=== PATIENT | female | born 1990 | race Caucasian/White ===

== ENCOUNTER 2022-11-20 19:11 | Observation (INO) | payer BC ==
[~2022-11-20] VITALS: Ht 167.6 cm; Wt 113.4 kg
--- NOTE | 2022-11-20 19:38 | ER.PDOC ---
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 Not heterosexually active, history of prior R nephrectomy because of ?cysts? or something similar from recurrent pyelonephritis. Timing/Duration: yesterday Severity/Quality: moderate, severe Location of Pain: flank pain Sexual [place] History: not active Contraceptive: none Associated Symptoms: dysuria Prior symptoms/Treatment: Similar symptoms previous Allergies: Coded Allergies: No Known Drug Allergies (Verified Allergy, Unknown, 11/20/22) Past Medical History Medical History: other (frequent UTIs. 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 Noted, Nursing Assessment Review of Systems Constitutional: malaise EENTM: no symptoms reported Respiratory: denies shortness of breath Cardiovascular: no symptoms reported Gastrointestinal: no symptoms reported Genitourinary: dysuria, flank pain Musculoskeletal: no symptoms reported Skin: no symptoms reported Psychiatric/Neurological: no symptoms reported All Other Systems: Reviewed and Negative Physical Exam General Appearance: Moderate Distress EENT: nml ENT inspection Neck: non-tender Cardiovascular/Respiratory: Regular Rate, Rhythm (initially rather tachy to 1- teens/120.) Abdomen: Normal Bowel Sounds, Soft Back: CVA tenderness (somewhat, perhaps more flank pain than CVA) Extremities: Non-Tender Neurologic/Psychiatric: No Motor/Sensory Deficits, Alert, Normal Mood/Affect Skin: Normal Color Results/Orders Results/Orders Orders - DAVID WELCH MD Urinalysis (11/20/22 19:37) Cbc With Auto Diff (11/20/22 19:46) Basic Metabolic Panel (11/20/22 19:46) Blood Culture (11/20/22 19:46) Ketorolac Tromethamine (Toradol) (11/20/22 19:48) 0.9 % Sodium Chloride (Ns 1000ml) (11/20/22 19:48) 0.9 % Sodium Chloride (Ns 1000ml) (11/20/22 19:48) Ceftriaxone Sodium (Rocephin) (11/20/22 19:48) 0.9 % Sodium Chloride (Ns 100ml) (11/20/22 20:23) Lactic Acid(Ml) (11/20/22 20:30) Urine Culture (11/20/22 19:43) Creatine Kinase (11/20/22 20:53) Ct Abd/Pelvis Wo Iv Contrast (11/20/22 20:53) Admit Orders (11/20/22 22:20) Vital Signs Date Time Temp Pulse Resp B/P (MAP) Pulse Ox O2 Delivery O2 Flow Rate FiO2 11/20/22 21:05 102 18 124/60 (81) 100 Room Air* 0 21 11/20/22 20:16 99.2 113 20 140/70 (93) 100 Room Air* 0 21 11/20/22 20:16 99.2 113 20 100 Administered Medications Medications (Trade) Dose Ordered Sig/[place] Route PRN Reason Start Time Stop Time Status Last Admin Dose Admin Ceftriaxone Sodium (Rocephin) 2,000 mg STAT STAT IV 11/20/22 19:48 11/20/22 19:49 UNV 11/20/22 20:24 2,000 MG Ketorolac Tromethamine (Toradol) 30 mg STAT STAT IV 11/20/22 19:48 11/20/22 19:49 UNV 11/20/22 20:04 30 MG Sodium Chloride 1,000 ml @ 0 mls/hr STAT STAT IV 11/20/22 19:48 11/20/22 19:49 UNV 11/20/22 20:04 1,200 MLS/HR Sodium Chloride 1,000 ml @ 0 mls/hr STAT STAT IV 11/20/22 19:48 11/20/22 19:49 UNV 11/20/22 20:04 1,200 MLS/HR Laboratory Tests Test 11/20/22 19:43 11/20/22 19:44 11/20/22 19:56 White Blood Count 12.3 10^3/uL (4.5-11.0) H Red Blood Count 4.47 10^6/uL (4.00-5.20) Hemoglobin 13.1 g/dL (12.0-15.0) Hematocrit 39.4 % (36.0-46.0) Mean Corpuscular Volume 88.1 fL (78-100) Mean Corpuscular Hemoglobin 29.3 pg (26-34) Mean Corpuscular Hemoglobin Concent 33.2 g/dL (33-36.5) Red Cell Distribution Width 16.5 % (11.5-14.5) H Platelet Count 408 10^3/uL (150-400) H Mean Platelet Volume 10.0 fL (7.8-11.0) Neutrophils (%) (Auto) 64.5 % (41.0-85.0) Lymphocytes (%) (Auto) 26.8 % (24.0-44.0) Monocytes (%) (Auto) 7.5 % (5.0-12.0) Neutrophils # (Auto) 8.0 10^3/uL (1.8-7.7) H Lymphocytes # (Auto) 3.31 10^3/uL1 (1.0-4.8) Monocytes # (Auto) 0.9 10^3/uL (0.3-0.8) H Absolute Immature Granulocyte (auto 0.02 10^3 u/L (0-2) Absolute Eosinophils (auto) 0.1 10^3/uL (0.0-0.2) Immature Granulocytes % 0.20 % (0.00-0.50) Eosinophils % 0.6 % (0.0-5.0) Basophils % 0.4 % (0.0-0.2) H Basophils # 0.1 10^3/uL (0.0-0.1) Urine Collection Type RANDOM Urine Color YELLOW Urine Appearance TURBID Urine Bilirubin NEGATIVE (NEGATIVE) Urine Ketones NEGATIVE (NEGATIVE) Urine Specific [place] >=1.030 (1.005-1.030) Urine pH 6.0 (4.5-8.0) Urine Protein 3+ (NEGATIVE) H Urine Urobilinogen 0.2 E.U./dL (0.2) Urine Nitrate POSITIVE (NEGATIVE) H Urine Leukocyte Esterase 1+ (NEGATIVE) H Urine Glucose (Auto)(UA) NEGATIVE (NEGATIVE) Urine Blood 3+ (NEGATIVE) H Urine RBC 0-2 RBC/HPF (NONE SEEN) Urine WBC TooNumerousToCount WBC/HPF (0-2) Urine Squamous Epithelial Cells FEW (<=FEW) Urine Bacteria FEW (NONE SEEN) H Urine Yeast RARE (NONE SEEN) Sodium Level 141 mmol/L (132-145) Potassium Level 3.6 mmol/L (3.6-5.2) Chloride Level 104.0 mmol/L (96-109) Carbon Dioxide Level 25.9 mmol/L (20.0-32) Glucose Level 82 mg/dL (70-110) Blood Urea Nitrogen 9 mg/dL (7-18) Creatinine 1.18 mg/dL (0.59-1.40) Calcium Level 8.3 mg/dL (8.4-10.5) L Anion Gap 14.7 Estimated GFR () 64.2 (>/=60) Est GFR (CKD-EPI)(Non-Afr Danish) 53.1 (>/=60) BUN/Creatinine Ratio 7.0 (10.0-20.0) L Total Creatine Kinase 132 U/L (26-192) Lactic Acid Level 1.4 mmol/L (0.5-1.9) Progress Progress MDM: Florid UTI, possibly pyelo. CBC shows WBC 12.4. CMP unremarkable. UA florid UTI. CPK: wnl CT abd/pelvis: no major pyelonephritic changes. Given pt's immunosuppressed status, I will recommend for admission. I have conferred with Dr. Arriaga. We will place pt in observation and continue fluids and abx. ER DEPART Departure Time of Disposition: 22:27 Disposition: 09 ADMITTED INPATIENT Impression: Primary Impression: Urinary tract infection Condition: Improved Referrals: BENJI PARSON (PCP) PRIMARY CARE PROVIDER Duration or Time Spent with Pa: 15 min DAVID WELCH MD Nov 20, 2022 19:38
[2022-11-20] MEDS ORDERED: TORADOL IV STA (19:48)
[2022-11-20] MEDS ORDERED: NS 1000ML 1,000 ML STA ×2 (19:48)
[2022-11-20] MEDS ORDERED: ROCEPHIN IV STA (19:48)
[2022-11-20] MEDS ORDERED: NS 1000ML 1,000 ML IV STA ×2 (19:48)
[2022-11-20 20:02] LABS: BASOPHIL # 0.1 10^3/uL (0.0-0.1); BASOPHIL % 0.4 % (0.0-0.2); EOSINOPHIL # 0.1 10^3/uL (0.0-0.2); EOSINOPHIL % 0.6 % (0.0-5.0); LYMPHOCYTES # 3.31 10^3/uL1 (1.0-4.8); LYMPHOCYTES % 26.8 % (24.0-44.0); MEAN CORP HGB 29.3 pg (26-34); MONOCYTES # 0.9 10^3/uL (0.3-0.8); MONOCYTES % 7.5 % (5.0-12.0); NEUTROPHILS % 64.5 % (41.0-85.0); PLATELET COUNT 408 10^3/uL (150-400); RED CELL DISTRIBUTION WIDTH 16.5 % (11.5-14.5)
[2022-11-20 20:15] LABS: CARBON DIOXIDE 25.9 mmol/L (20.0-32)
[2022-11-20 20:16] VITALS: BP 140/70
[2022-11-20 20:16] LABS: BILIRUBIN,URINE NEGATIVE (NEGATIVE); UROBILINOGEN,URINE 0.2 E.U./dL (0.2)
[2022-11-20] MEDS ORDERED: NS 100ML 100 ML IV ONE (20:23)
[2022-11-20 20:38] LABS: YEAST,URINE RARE (NONE SEEN)
[2022-11-20 21:05] VITALS: BP 124/60
[2022-11-20 22:10] VITALS: BP 115/72
--- NOTE | 2022-11-20 22:10 | DIREP ---
PROCEDURE:CT ABDOMEN/PELVIS W/O CONTRAST COMPARISON:[facility] [place] [facility], CT, CT RENAL STONE PROTOCOL, 07/06/2018, 07:31 PM. [facility] [place] [facility], CT, CT ABD/PELVIS W/ CONTRAST, 04/18/2019, 02:45 PM. INDICATIONS:characterize pyelonephritis TECHNIQUE:Axial images were created through the abdomen and pelvis without intravenous contrast material. No oral contrast was administered. Sagittal and coronal reconstructions were performed from source images. FINDINGS: LUNG BASES:Normal. No visible pulmonary or pleural disease. LIVER:Normal. No significant liver lesions are identified. BILIARY:Cholecystectomy PANCREAS:Normal. No lesion, fluid collection, ductal dilatation, or atrophy. SPLEEN:Normal. No enlargement or focal lesion. ADRENALS:Normal. No mass or enlargement. URINARY TRACT:Absent right kidney with several small surgical clips, presumably from nephrectomy. No nephrolithiasis or hydronephrosis left kidney. Ureter normal on the left. No perinephric inflammation. AORTA/VASCULAR:Normal. No aneurysm. RETROPERITONEUM:Normal. No mass or adenopathy. BOWEL/MESENTERY: Unable to identify the appendix, normal or abnormal. No oral contrast. No dilated loops. Small amount of diverticulosis of the sigmoid colon, no focal signs of diverticulitis ABDOMINAL WALL:Normal. No mass or hernia. PELVIC ORGANS:Normal. No visible mass. Pelvic organs appropriate for patient age. BONES:Normal for age. No bony lesion or acute fracture. OTHER:Negative. CONCLUSION:Absent right kidney. Cholecystectomy. Normal left kidney. No IV contrast. Dictated by: Carla Rodriguez MD on 11/20/2022 at 10:02 PM
--- NOTE | 2022-11-20 22:28 | PRM.CONS ---
Consultation Reason for Consult: Reason for Consultation: Admission for UTI and dehydration History of Present Illness Current and Past HX: (1) History of nephrectomy Status: Chronic ICD Code: Z90.5 - Acquired absence of kidney SNOMED: 48066366875684 (2) History of cholecystectomy Status: Chronic ICD Code: Z90.49 - Acquired absence of other specified parts of digestive tract SNOMED: 60139673, 806132865 History of Patient Comments This is a telemedicine visit Patient's current location: [place], [place] My current location: [place], [place] Total time spent on day of admission: 22 minutes including review of the chart, discussion with emergency room provider, placement of orders Per emergency room staffing, patient declined full telemedicine evaluation but was okay with cross covering as well as placement of admission orders and initial treatment for her urinary tract infection. Vitals & Lab Laboratory Tests Test 11/20/22 19:43 11/20/22 19:44 11/20/22 19:56 White Blood Count 12.3 10^3/uL Red Blood Count 4.47 10^6/uL Hemoglobin 13.1 g/dL Hematocrit 39.4 % Mean Corpuscular Volume 88.1 fL Mean Corpuscular Hemoglobin 29.3 pg Mean Corpuscular Hemoglobin Concent 33.2 g/dL Red Cell Distribution Width 16.5 % Platelet Count 408 10^3/uL Mean Platelet Volume 10.0 fL Neutrophils (%) (Auto) 64.5 % Lymphocytes (%) (Auto) 26.8 % Monocytes (%) (Auto) 7.5 % Neutrophils # (Auto) 8.0 10^3/uL Lymphocytes # (Auto) 3.31 10^3/uL1 Monocytes # (Auto) 0.9 10^3/uL Absolute Immature Granulocyte (auto 0.02 10^3 u/L Absolute Eosinophils (auto) 0.1 10^3/uL Immature Granulocytes % 0.20 % Eosinophils % 0.6 % Basophils % 0.4 % Basophils # 0.1 10^3/uL Urine Collection Type RANDOM Urine Color YELLOW Urine Appearance TURBID Urine Bilirubin NEGATIVE Urine Ketones NEGATIVE Urine Specific [place] >=1.030 Urine pH 6.0 Urine Protein 3+ Urine Urobilinogen 0.2 E.U./dL Urine Nitrate POSITIVE Urine Leukocyte Esterase 1+ Urine Glucose (Auto)(UA) NEGATIVE Urine Blood 3+ Urine RBC 0-2 RBC/HPF Urine WBC TooNumerousToCount WBC/HPF Urine Squamous Epithelial Cells FEW Urine Bacteria FEW Urine Yeast RARE Sodium Level 141 mmol/L Potassium Level 3.6 mmol/L Chloride Level 104.0 mmol/L Carbon Dioxide Level 25.9 mmol/L Glucose Level 82 mg/dL Blood Urea Nitrogen 9 mg/dL Creatinine 1.18 mg/dL Calcium Level 8.3 mg/dL Anion Gap 14.7 Estimated GFR () 64.2 Est GFR (CKD-EPI)(Non-Afr Guamanian) 53.1 BUN/Creatinine Ratio 7.0 Total Creatine Kinase 132 U/L Lactic Acid Level 1.4 mmol/L Current Medications Medications (Trade) Dose Ordered Sig/[place] Route PRN Reason Start Time Stop Time Status Last Admin Dose Admin Ketorolac Tromethamine (Toradol) 30 mg STAT STAT IV 11/20/22 19:48 11/20/22 19:49 UNV 11/20/22 20:04 Sodium Chloride 1,000 ml @ 0 mls/hr STAT STAT IV 11/20/22 19:48 11/20/22 19:49 UNV 11/20/22 20:04 Sodium Chloride 1,000 ml @ 0 mls/hr STAT STAT IV 11/20/22 19:48 11/20/22 19:49 UNV 11/20/22 20:04 Ceftriaxone Sodium (Rocephin) 2,000 mg STAT STAT IV 11/20/22 19:48 11/20/22 19:49 UNV 11/20/22 20:24 Sodium Chloride 100 ml @ ud STK-MED ONCE IV 11/20/22 20:23 11/20/22 20:24 DC Vital Sign - Last 24 Hours 11/20/22 11/20/22 11/20/22 20:16 20:16 21:05 Temp 99.2 99.2 Pulse 113 113 102 Resp 20 20 18 B/P (MAP) 140/70 (93) 124/60 (81) Pulse Ox 100 100 100 O2 Delivery Room Air* Room Air* O2 Flow Rate 0 0 FiO2 21 21 VTE VTE Risk Score VTE Risk: Score 0-1 = Low Risk (Aggressive mobilization; early ambulation; no VTE prophylaxis required) Score 2: Moderate Risk (Intermittent/Pneumatic Compression Device OR Lovenox/Heparin/Coumadin) Score 3-4: High Risk (Intermittent/Pneumatic Compression Device AND Lovenox/Heparin/Coumadin) Score > or =5: Highest Risk (Intermittent/Pneumatic Compression Device AND Lovenox/Heparin/Coumadin) Reasons not ordering prophylax: Bleeding VTE Mechanical device ordered: Yes History of Present Illness History of Present Illness This is a 32-year-old female with a known history of ocular autoimmune disorder undergoing IVIG and CellCept who presented to the emergency room with complaints of dysuria and left-sided flank pain. In the emergency room she underwent full evaluation including CT abdomen pelvis which showed no nephrolithiasis. She did have evidence of urinary tract infection and was subsequently being admitted to the hospital. Past Surgical History: Cholecystectomy, Other (nephrectomy) Past Social History Smoke: No Alcohol: none Travel Hx EBOLA RISK:Travel to/contact w: No Physical Exam General Appearance: Other Comments Declined by patient Assessment/Plan Assessment/Plan Problems: (1) Urinary tract infection Status: Acute Assessment & Plan: Starting the patient on IV Rocephin Follow-up on urine and blood cultures No evidence of severe sepsis, severe organ damage ICD Code: N39.0 - Urinary tract infection, site not specified SNOMED: 03455353 (2) SIRS (systemic inflammatory response syndrome) Status: Acute Assessment & Plan: Patient does have evidence of SIRS without severe sepsis or a significantly elevated sofa score. Possible cause of the abnormal vitals are related to her underlying acute infection. Monitor vital signs very closely ICD Code: R65.10 - Systemic inflammatory response syndrome (SIRS) of non- infectious origin without acute organ dysfunction SNOMED: 155757532 (3) Thrombocytosis Status: Acute Assessment & Plan: Trend for now ICD Code: D75.839 - Thrombocytosis, unspecified SNOMED: 2000786 (4) Dehydration Status: Acute Assessment & Plan: Aggressive IV fluid hydration ICD Code: E86.0 - Dehydration SNOMED: 46109535 (5) Proteinuria Status: Chronic Assessment & Plan: Outpatient follow-up ICD Code: R80.9 - Proteinuria, unspecified SNOMED: 04319444 (6) History of nephrectomy Status: Chronic Assessment & Plan: Stable ICD Code: Z90.5 - Acquired absence of kidney SNOMED: 20799326796865 (7) History of cholecystectomy Status: Chronic Assessment & Plan: Stable ICD Code: Z90.49 - Acquired absence of other specified parts of digestive tract SNOMED: 95448207, 866499799 Problem Qualifiers (1) Urinary tract infection: Urinary tract infection type: acute cystitis Hematuria presence: with hematuria Qualified Codes: N30.01 - Acute cystitis with hematuria (2) Proteinuria: Proteinuria type: persistent Qualified Codes: R80.1 - Persistent proteinuria, unspecified JOSSE MORALES MD Nov 20, 2022 22:28
[2022-11-20] MEDS ORDERED: TYLENOL PO PRN (22:30)
[2022-11-20] MEDS ORDERED: ZOFRAN IV PRN (22:30)
[2022-11-20] MEDS ORDERED: NORCO 5MG PO PRN (22:30)
[2022-11-20] MEDS ORDERED: MORPHINE SULFATE IV PRN (22:30)
[2022-11-20 22:50] VITALS: BP 122/68
[2022-11-20] MEDS: NS 1000ML 1,000 ML IV SCH (23:31)
[2022-11-21] VITALS: BP_SYST 125; BP_SYST 126; BP_DIAS 100; BP_DIAS 82
[2022-11-21] MEDS: NS 1000ML 1,000 ML IV SCH ×4 (03:30→18:19)
[2022-11-21 04:21] VITALS: BP 133/70
[2022-11-21 05:27] LABS: BASOPHIL % 0.4 % (0.0-0.2); EOSINOPHIL # 0.1 10^3/uL (0.0-0.2); EOSINOPHIL % 0.9 % (0.0-5.0); LYMPHOCYTES # 3.06 10^3/uL1 (1.0-4.8); LYMPHOCYTES % 32.9 % (24.0-44.0); MEAN CORP HGB 29.8 pg (26-34); MONOCYTES # 0.7 10^3/uL (0.3-0.8); NEUTROPHIL # 5.5 10^3/uL (1.8-7.7); NEUTROPHILS % 58.8 % (41.0-85.0); PLATELET COUNT 333 10^3/uL (150-400); RED CELL DISTRIBUTION WIDTH 16.3 % (11.5-14.5)
[2022-11-21 05:46] LABS: CARBON DIOXIDE 22.7 mmol/L (20.0-32)
[2022-11-21 07:00] VITALS: BP 139/109
[2022-11-21] MEDS: ROCEPHIN 1,000 MG in NS 100ML 100 ML IV SCH (08:36)
[2022-11-21 11:00] VITALS: BP 110/70
--- NOTE | 2022-11-21 11:35 | NUR ---
CM, DISCHARGE PLANNING CM VISITED WITH PATIENT REGARDING DISCHARGE PLAN AND NEED. PATIENT LIVES AT HOME WITH SIGNIFICANT OTHER. PATIENT INDEPENDENT WITH ADLS WITH CANE,WALKER AND WHEELCHAIR AT HOME, PCP DR Prince PARSON, HAS GOOD SUPPORT SYSTEM. DENIES ANY DISCHARGE NEED, NO FURTHER CASE MANAGEMENT NEED AT THIS TIME. GOAL AT THIS TIME TO RETURN HOME WITH SIGNIFICANT OTHER FOR ROUTINE SELF CARE. CM TO CONTINUE TO FOLLOW/MONITOR FOR DISCHARGE NEED.
[2022-11-21 16:00] VITALS: BP 118/82
--- NOTE | 2022-11-21 16:00 | PCM.HP ---
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 In the emergency room she underwent full evaluation including CT abdomen pelvis which showed no nephrolithiasis. She did have evidence of urinary tract infection and was subsequently being admitted to the hospital by tele housing installer. Patient received IV fluids and started on IV antibiotics, Per chart review patient initially met SIRS criteria but not sepsis or shock, She reported feeling better the next morning. Patient reported pain had improved and prior to presenting had decreased urination and dysuria with some purulent discharge. Patient post Right nephrectomy for masses that were benign, She reports getting diagnosed with autoimmune disorder 7 months ago in May. Reported associated fevers and chills. Patient reports similar episode about 1 year prior.. ALLERGIES: Denies any known food or drug PCP: Dr. 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 Patient is single, lives with her boyfriend, does not use walker or cane FAMILY HISTORY: Denies any autoimmune disorder, non contributory REVIEW OF SYSTEMS: 10 Point review of systems negative per HPI VITAL SIGNS: Vital Signs Date Time Temp Pulse Resp B/P (MAP) Pulse Ox O2 Delivery O2 Flow Rate FiO2 11/21/22 11:00 98.1 87 18 110/70 (83) 99 Room Air* 0 11/21/22 08:36 Room Air 0.00 11/21/22 07:00 97.5 100 18 139/109 (119) 98 Room Air* 0 11/21/22 04:21 97.9 85 19 133/70 (91) 92 Room Air* 0 11/21/22 00:00 125/100 (108) Room Air* 0 11/21/22 00:00 97.7 118 20 126/82 (97) 98 Room Air* 0 21 11/20/22 23:48 Room Air 0.00 11/20/22 22:50 98.9 95 18 122/68 (86) 100 Room Air* 0 21 11/20/22 22:10 97 18 115/72 (86) 100 Room Air* 0 21 11/20/22 21:05 102 18 124/60 (81) 100 Room Air* 0 21 11/20/22 20:16 99.2 113 20 140/70 (93) 100 Room Air* 0 21 11/20/22 20:16 99.2 113 20 100 PHYSICAL EXAMINATION: General: Patient resting but easily arousable, no acute distress HEENT: Head atraumatic, PERRL, EOMI, oropharynx clear, neck supple Heart: Normal S1 and S2 Lungs: Good air entry bilaterally, no rhonchi wheeze Abdomen is obese, positive bowel sounds, soft, nontender Extremities: Moves all well, no gross deformity, no edema Neuro: Grossly intact, mild decreased strength right side upper and lower extremities. Skin: Intact, no rashes or breakdown Psych: Mood appropriate, patient cooperative with exam LABORATORY DATA: Laboratory Tests 11/20/22 19:43: White Blood Count 12.3H, Red Blood Count 4.47, Hemoglobin 13.1, Hematocrit 39.4, Mean Corpuscular Volume 88.1, Mean Corpuscular Hemoglobin 29.3, Mean Corpuscular Hemoglobin Concent 33.2, Red Cell Distribution Width 16.5H, Platelet Count 408H, Mean Platelet Volume 10.0, Neutrophils (%) (Auto) 64.5, Lymphocytes (%) (Auto) 26.8, Monocytes (%) (Auto) 7.5, Neutrophils # (Auto) 8.0H, Lymphocytes # (Auto) 3.31, Monocytes # (Auto) 0.9H, Absolute Immature Granulocyte (auto 0.02, Absolute Eosinophils (auto) 0.1, Immature Granulocytes % 0.20, Eosinophils % 0.6, Basophils % 0.4H, Basophils # 0.1, Urine Collection Type RANDOM, Urine Color YELLOW, Urine Appearance TURBID, Urine Bilirubin NEGATIVE, Urine Ketones NEGATIVE, Urine Specific [place] >=1.030, Urine pH 6.0, Urine Protein 3+H, Urine Urobilinogen 0.2, Urine Nitrate POSITIVEH, Urine Leukocyte Esterase 1+H, Urine Glucose (Auto)(UA) NEGATIVE, Urine Blood 3+H, Urine RBC 0-2, Urine WBC TooNumerousToCountH, Urine Squamous Epithelial Cells FEW, Urine Bacteria FEWH, Urine Yeast RARE, Sodium Level 141, Potassium Level 3.6, Chloride Level 104.0, Carbon Dioxide Level 25.9, Glucose Level 82, Blood Urea Nitrogen 9, Creatinine 1.18, Calcium Level 8.3L, Anion Gap 14.7, Estimated GFR () 64.2, Est GFR (CKD-EPI)(Non-Afr Spanish) 53.1, BUN/Creatinine Ratio 7.0L 11/20/22 19:44: Total Creatine Kinase 132 11/20/22 19:56: Lactic Acid Level 1.4 11/21/22 05:12: White Blood Count 9.3, Red Blood Count 3.73L, Hemoglobin 11.1L, Hematocrit 33.4L , Mean Corpuscular Volume 89.5, Mean Corpuscular Hemoglobin 29.8, Mean Corpuscular Hemoglobin Concent 33.2, Red Cell Distribution Width 16.3H, Platelet Count 333, Mean Platelet Volume 10.1, Neutrophils (%) (Auto) 58.8, Lymphocytes (%) (Auto) 32.9, Monocytes (%) (Auto) 7.0, Neutrophils # (Auto) 5.5, Lymphocytes # (Auto) 3.06, Monocytes # (Auto) 0.7, Absolute Immature Granulocyte (auto 0, Absolute Eosinophils (auto) 0.1, Immature Granulocytes % 0.00, Eosinophils % 0.9, Basophils % 0.4H, Basophils # 0.0, Sodium Level 141, Potassium Level 3.7, Chloride Level 110.0H, Carbon Dioxide Level 22.7, Glucose Level 87, Blood Urea Nitrogen 9, Creatinine 1.07, Calcium Level 7.3L, Anion Gap 12.0, Estimated GFR () 71.9, Est GFR (CKD-EPI)(Non-Afr Spanish) 59.4, BUN/Creatinine Ratio 8.0L, Total Bilirubin 0.2, Aspartate Amino Transf (AST/SGOT) 22, Alanine Aminotransferase (ALT/SGPT) 33, Alkaline Phosphatase 64, Total Protein 6.4, Albumin 2.6L, Globulin 3.8, Albumin/Globulin Ratio 0.684 IMAGING: CT of the abdomen pelvis showed cholecystectomy, absent right kidney, normal left kidney with no nephrolithiasis or hydronephrosis of left kidney SUMMARY: 32-year-old female presents with left-sided pain found to have urinary tract infection ASSESSMENT/PLAN: UTIpatient feeling better, continue IV antibiotics and gentle hydration, pain control, follow-up on urine culture ID and sensitivity History of autoimmune disorderwe will continue home medications and monitor GI/DVT prophylaxis Total time spent 45 minutes AARTI GENAO MD Nov 21, 2022 16:00
[2022-11-21 19:44] VITALS: BP 162/124
[2022-11-22 00:15] VITALS: BP 147/103
[2022-11-22] MEDS: NS 1000ML 1,000 ML IV SCH ×2 (00:23→04:30)
[2022-11-22] MEDS ORDERED: APRESOLINE PO STA (00:55)
--- NOTE | 2022-11-22 01:03 | NUR ---
HIGH BLOOD PRESSURE PATIENT HAD A BP OF 147/103 AND A HR OF 116. NOTIFIED AT THIS TIME. HYDRALAZINE 25MG PO STAT ORDERED. THIS NURSE WILL CONTINUE PLAN OF CARE.
[2022-11-22 04:13] VITALS: BP 130/87
[2022-11-22 07:00] VITALS: BP 129/91
[2022-11-22 07:07] LABS: CARBON DIOXIDE 23.3 mmol/L (20.0-32)
[2022-11-22 07:08] LABS: MEAN CORP HGB 29.1 pg (26-34); RED CELL DISTRIBUTION WIDTH 16.5 % (11.5-14.5)
[2022-11-22] MEDS ORDERED: KLOR-CON 10 PO SCH (08:00)
[2022-11-22] MEDS: ROCEPHIN 1,000 MG in NS 100ML 100 ML IV SCH (09:22)
[2022-11-22 11:00] VITALS: BP 180/146
--- NOTE | 2022-11-22 11:42 | PRM.DC ---
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 In the emergency room she underwent full evaluation including CT abdomen pelvis which showed no nephrolithiasis or hydronephrosis. She did have evidence of urinary tract infection and was subsequently being admitted to the hospital by tele solutions sales consultant. Patient was started on IV antibiotics, patients symptoms improved, her appetite returned, urine culture ID/sens for citrobacter freundii that was espinal sensitive, able to transition from IV to oral antibiotics and she was stable for discharge home to continue to recover. Dispo: home Condition: fair Medications: per med rec Follow Up: with PCP within 1-2 weeks Exam Vital Signs Vital Signs Date Time Temp Pulse Resp B/P (MAP) Pulse Ox O2 Delivery O2 Flow Rate FiO2 11/22/22 07:00 98.1 84 19 129/91 (104) 99 Room Air* 0 21 VTE VTE Risk Total Score: 0 VTE Risk Score VTE Risk: Score 0-1 = Low Risk (Aggressive mobilization; early ambulation; no VTE prophylaxis required) Score 2: Moderate Risk (Intermittent/Pneumatic Compression Device OR Lovenox/Heparin/Coumadin) Score 3-4: High Risk (Intermittent/Pneumatic Compression Device AND Lovenox/Heparin/Coumadin) Score > or =5: Highest Risk (Intermittent/Pneumatic Compression Device AND Lovenox/Heparin/Coumadin) Mechanical device ordered: Yes Reasons not ordering prophylax: Bleeding Objective Vitals and I/O Vital Sign - Last 24 Hours 11/21/22 11/21/22 11/21/22 11/22/22 16:00 19:44 21:30 00:15 Temp 98.7 98.0 98.4 Pulse 121 119 116 Resp 18 18 18 B/P (MAP) 118/82 (94) 162/124 (137) 147/103 (118) Pulse Ox 98 95 96 O2 Delivery Room Air* Room Air* Room Air Room Air* O2 Flow Rate 0 0 0.00 0 FiO2 21 21 21 11/22/22 11/22/22 11/22/22 01:01 04:13 07:00 Temp 98.0 98.1 Pulse 116 108 84 Resp 18 19 B/P (MAP) 147/103 130/87 (101) 129/91 (104) Pulse Ox 97 99 O2 Delivery Room Air* Room Air* O2 Flow Rate 0 0 FiO2 21 21 Intake and Output 11/22/22 07:00 Intake Total 480 ml Balance 480 ml All Results(Lab/Rad) Laboratory Tests Test 11/22/22 05:44 White Blood Count 8.4 10^3/uL Red Blood Count 3.81 10^6/uL Hemoglobin 11.1 g/dL Hematocrit 33.7 % Mean Corpuscular Volume 88.5 fL Mean Corpuscular Hemoglobin 29.1 pg Mean Corpuscular Hemoglobin Concent 32.9 g/dL Red Cell Distribution Width 16.5 % Platelet Count 330 10^3/uL Mean Platelet Volume 10.4 fL Sodium Level 141 mmol/L Potassium Level 3.5 mmol/L Chloride Level 110.0 mmol/L Carbon Dioxide Level 23.3 mmol/L Glucose Level 103 mg/dL Blood Urea Nitrogen 8 mg/dL Creatinine 1.06 mg/dL Calcium Level 7.7 mg/dL Anion Gap 11.2 Estimated GFR () 72.7 Est GFR (CKD-EPI)(Non-Afr [place]i) 60.1 BUN/Creatinine Ratio 7.0 Current Medications Medications (Trade) Dose Ordered Sig/[place] Route PRN Reason Start Time Stop Time Status Last Admin Dose Admin Ketorolac Tromethamine (Toradol) 30 mg STAT STAT IV 11/20/22 19:48 11/20/22 23:19 DC 11/20/22 20:04 Sodium Chloride 1,000 ml @ 0 mls/hr STAT STAT IV 11/20/22 19:48 11/20/22 23:18 DC 11/20/22 20:04 Sodium Chloride 1,000 ml @ 0 mls/hr STAT STAT IV 11/20/22 19:48 11/20/22 23:18 DC 11/20/22 20:04 Ceftriaxone Sodium (Rocephin) 2,000 mg STAT STAT IV 11/20/22 19:48 11/20/22 23:18 DC 11/20/22 20:24 Sodium Chloride 100 ml @ ud STK-MED ONCE IV 11/20/22 20:23 11/20/22 20:24 DC Acetaminophen (Tylenol) 650 mg Q4H PRN PO PAIN 1 - 3 11/20/22 22:30 12/20/22 22:29 Ceftriaxone Sodium 1000 mg/ Sodium Chloride 100 ml @ 200 mls/hr Q24HRS IV 11/21/22 09:00 12/21/22 08:59 11/22/22 09:22 Ondansetron HCl (Zofran) 4 mg Q4H PRN IV NAUSEA / VOMITING 11/20/22 22:30 12/20/22 22:29 Acetaminophen/ Hydrocodone Bitart ([place] 5mg) 1 ea Q4HR PRN PO PAIN 4 - 6 11/20/22 22:30 12/20/22 22:29 Morphine Sulfate (Morphine Sulfate) 2 mg Q4H PRN IV PAIN 7 - 10 11/20/22 22:30 12/20/22 22:29 11/20/22 23:32 Sodium Chloride 1,000 ml @ 200 mls/hr Q5H IV 11/20/22 22:30 12/20/22 22:29 11/22/22 00:23 Sodium Chloride 1,000 ml @ 0 mls/hr STAT STAT IV 11/20/22 19:48 11/20/22 23:19 DC Sodium Chloride 1,000 ml @ 0 mls/hr STAT STAT IV 11/20/22 19:48 11/20/22 23:19 DC Hydralazine HCl (Apresoline) 25 mg STAT STAT PO 11/22/22 00:55 11/22/22 01:04 DC 11/22/22 01:01 Potassium Chloride (Klor-Con 10) 30 meq OT PO 11/22/22 08:00 12/22/22 07:59 11/22/22 09:22 Plan Plan My Orders - AARTI GENAO MD Procedure Category Date Status Time Basic Metabolic Panel LAB 11/22/22 Complete 05:00 Cbc W/O Diff LAB 11/22/22 Complete 05:00 Potassium Chloride PHA 11/22/22 In Process (Klor-Con 10) 08:00 Discharge DISCHARGE 11/22/22 Transmitted 11:38 AARTI GENAO MD Nov 22, 2022 11:42
[2022-11-22] MEDS ORDERED: [UNRECOGNIZED DRUG - CODE] PO (11:43)
--- NOTE | 2022-11-22 13:55 | NUR ---
DISCHARGE EDUCATION DISCHARGE INSTRUCTIONS GIVEN TO PT. EXPLAINED TO PT TO TAKE LEVAQUIN 750MG PO DAILY FOR 7 DAYS. MEDICATION HAS BEEN CALLED INTO [facility]. NEED TO SEE PCP IN A WEEK TO TWO WEEK. RESUME NORMAL ACTIVITY SLOWLY. RESUME NORMAL DIET AND INCREASE FLUIDS. PT DID ASK ABOUT DIFLUCAN TO TAKE WITH ANTIBIOTIC. IT HAS ALSO BEEN CALLED INTO [facility]. EXPLAINED TO CALL WHEN RIDE IS HERE.
[2022-11-22 14:07] VITALS: BP 129/91
--- NOTE | 2022-11-22 14:25 | NUR ---
DISCHARGE PT TAKEN DOWN TO PRIVATE CAR VIA W/C BY Skye WOODY LVN. BELONGINGS AND PAPERWORK WITH PT. NO DISTRESS NOTED OR VOICED.
== END 2022-11-22 14:25 | disposition home or self-care (01) ==
LOC: ER 19:11 → MS 22:39
PROVIDERS: ADMIT Internal Medicine; ATTEND Internal Medicine
DX: N39.0 Urinary tract infection, site not specified (principal); R65.10 Systemic inflammatory response syndrome (SIRS) of non-infectious origin without acute organ dysfunction; D75.839 Thrombocytosis, unspecified; D89.89 Other specified disorders involving the immune mechanism, not elsewhere classified; E86.0 Dehydration; R80.9 Proteinuria, unspecified; H54.7 Unspecified visual loss; F17.210 Nicotine dependence, cigarettes, uncomplicated; Z87.440 Personal history of urinary (tract) infections; Z90.49 Acquired absence of other specified parts of digestive tract; Z90.5 Acquired absence of kidney; Z79.624 Long term (current) use of inhibitors of nucleotide synthesis; Z79.899 Other long term (current) drug therapy
CPT/HCPCS: 96361 ×3; 96375; 96376; 99285; 87086; 74176; 85025 ×2; 36415 ×3; 80048 ×2; 87040 ×2; 83605; 81001; 82550; 87186 ×3; 87077 ×2; 96365; 96366 ×2; 80053; 85027; G0378 ×40; J7030 ×3; J0696 ×3; J1885; J3490